=== PATIENT | male | born 1960 | race African-American/Black ===

== ENCOUNTER 2020-07-18 18:57 | Inpatient (IN) | payer OTHER ==
[~2020-07-18] VITALS: Ht 182.9 cm; Wt 72.6 kg
[2020-07-18 19:00] VITALS: BP 137/84
[2020-07-18] MEDS ORDERED: METFORMIN HCL500 MG PO (19:39)
[2020-07-18] MEDS ORDERED: LISINOPRIL10 MG PO (21:12)
[2020-07-18] MEDS ORDERED: GLIPIZIDE 10 MG10 MG PO (21:12)
[2020-07-18] MEDS ORDERED: IBUPROFEN200 M1 PO (21:13)
[2020-07-18 21:19] LABS: ABSOLUTE NEUTROPHILS 7.3 thou/uL (1.4-8.2); BASOPHILS 0.5 % (0.0-2.0); EOSINOPHILS 1.6 % (0.0-3.0); HEMATOCRIT 41.1 % (42.0-52.0); HEMOGLOBIN 13.5 gm/dL (14.0-18.0); LYMPHOCYTES 25.8 % (24.0-44.0); MCH 27.9 pg (26.0-34.0); MCHC 32.9 g/dL (28.0-37.0); MCV 85.1 fL (80.0-100.0); MONOCYTES 7.8 % (1.0-8.0); PLATELET COUNT 176 thou/uL (150-400); POLYS 64.3 % (36.0-66.0); RBC 4.83 mil/uL (4.50-6.00); RDW 13.4 % (10.5-14.5); WBC 11.3 thou/uL (4.0-11.0)
[2020-07-18 21:23] LABS: CALCIUM 9.2 mg/dL (8.5-10.1); CREATININE 0.8 mg/dL (0.7-1.3); POTASSIUM 3.7 mmol/L (3.5-5.1)
[2020-07-19 05:42] LABS: HEMATOCRIT 39.7 % (42.0-52.0); HEMOGLOBIN 12.8 gm/dL (14.0-18.0); MCH 28.3 pg (26.0-34.0); MCHC 32.1 g/dL (28.0-37.0); RBC 4.52 mil/uL (4.50-6.00); RDW 13.4 % (10.5-14.5); WBC 9.5 thou/uL (4.0-11.0)
[2020-07-19 06:34] VITALS: BP 140/82
[2020-07-19 07:45] VITALS: BP 147/89
[2020-07-19 09:41] VITALS: BP 147/89
--- NOTE | 2020-07-19 12:49 | NUR ---
PT WAS SEEN TODAY BY [employer] INTERN// WELL RN. PT ARRIVED TO THE UNIT THIS MORNING VIA ED ESCORT, PT WAS AMBULATORY UPON ARRIVAL ALL BELONGINGS WITH THE PT. UPON ARRIVAL PT WAS RUNNING NORMAL SALINE AND HAD BEEN RECEIVING THE FLUID PER ORDER. PT'S PRIMARY CONCERN UPON ARRIVAL IS GETTING SOME FOOD, RN EXPLAINED THAT DUE TO THE LIKELIHOOD THAT HE MAY NEED SURGICAL INTERVENTION AND IN THE CASE WHICH HE DOES HE MAY NOT BE ABLE TO IF FOOD IS CONSUMEDL; THEREFORE HE IS ON NPO STATUS. PT VERBALIZED UNDERSTANDING. PT WAS EXPLAINED THE PROCESSES THAT WILL BE UNDERTOOK TODAY SUCH BLOOD TESTING/DIAGNOSTIC TESTINGS/ WELL CAREPLAN FOR THE DAY. PT VERBALIZED AND ALL ORDERS WERE FOLLOWED PROMPTLY. AT 1230 WHEN RN RETURNED TO UNIT, IT WAS TOLD THAT PT IS TRYING TO LEAVE. WHEN RN WENT IN THE ROOM PT STUCK HIS ARM OUT AND STATED THAT HE WAS GOING TO LEAVE, WHEN RN EXPLAINED THAT HE SHOULD STAY PT VERBALIZED NO AND ATTEMPTED TO REMOVE THE IV HIMSELF. RN GOT THE AMA PAPERS AND WAS SIGNED. PT WAS ESCORTED BY RN OUT THE ED, AND PT STATED THAT HE GRABBED ALL OF HIS OWN BELONGINGS. ON THE WAY OUT PT VERBALIZED THAT IT WAS NOT THE STAFF ISSUE, IT WAS THE TIME. HE DID NOT EXPECT THAT HE WILL BE STAYING IN THE HOSPTIAL FOR SO LONG AND EVERYONE WAS TAKING SO LONG TO RESPOND TO WHAT IS GOING ON TO HIM. NOTIFIED VIA M_SOLUTION AND WAS PAGED
--- NOTE | 2020-07-20 07:01 | HC ---
[facility] [place] [address] CONSULTATION Name: MELODY DOMINGUEZ Room #: 442-P [facility] IN M.R.#: [id number] Admission: 07/18/20 Attend Phys: Jame Casey MD Discharge: 07/19/20 Date of : 64 Report #: [id number] THIS REPORT FOR: cc: FAM - No family physician/PCP FAM - No family physician/PCP Alexander Rocha MD ~ REASON FOR CONSULTATION: Bilateral cervical adenopathy and history of testicular cancer. HISTORY OF PRESENT ILLNESS: The patient is a 59-year-old male who was treated for testicular cancer in 1987 at [facility] [place], was disease free. 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 He has about a 6-month history of a 60-pound weight loss, also has about a 3 to 7-day history of neck pain and masses in his neck. When he came to the hospital, he was noted to have on these lymph nodes and a CT scan of the neck described extensive lymphadenopathy, predominantly along the jugulodigastric lymph node change, posterior triangle lymph nodes, supraclavicular and upper mediastinum. Necrotic 2.5 cm posterior right jugulodigastric lymph node near the right sternocleidomastoid muscles noted. No definite primary mass within the neck. No evidence of airway mass. Differential diagnosis includes metastatic disease versus lymphoma. Note that there are plans for CT chest, abdomen and pelvis. CBC was fairly unremarkable, though his hemoglobin slightly low at 12.8, platelet count is 149, also, slight low. White count 9.5. BMP was unremarkable. Calcium was 9.2. PAST MEDICAL HISTORY: Notable for the testicular cancer treated in 1987. Also, history of diabetes, history of hypertension, also history of tobacco misuse half pack per day for the last 15 years. MEDICATIONS: At this time in the hospital currently include metformin 500 b.i.d., Zosyn 3.375 IV q. 8 hours, sliding scale insulin, glipizide 5, lisinopril 10, IV fluids. PHYSICAL EXAMINATION: GENERAL: The patient appears his stated age. VITAL SIGNS: Height is 6 feet, 182.9 cm, weight 160 pounds or 72.58 kilograms. MOOD: Pleasant, alert, conversant. NEUROLOGIC: Speech and thought pattern are normal, does have enlarged lymph nodes in both necks and also definitely right supraclavicular, none in the axilla. LUNGS: Clear. The rest with symmetric without stridor, rhonchi or wheezes. HEART: Regular rate. ABDOMEN: Without definite organomegaly. EXTREMITIES: Without clubbing, cyanosis or edema. SKIN: Intact. Recent blood pressure 147/89, O2 sat 99, respirations 18, pulse 85, [place] [address] CONSULTATION Name: MELODY DOMINGUEZ Room #: 442-P [facility] M.R.#: [id number] Admission: 07/18/20 Attend Phys: Jame Casey MD Discharge: 07/19/20 Date of : 64 Report #: [id number] ASSESSMENT AND PLAN: 1. Bilateral neck and supraclavicular, mediastinal adenopathy. Await CT chest, abdomen and pelvis and also ENT evaluation, most likely we would consider either core needle biopsy or surgical removal to ascertain whether this is a thymic cancer either lymphoma or other primary or less likely infection or less likely new testicular primary. We will also check alpha fetoprotein, beta hCG. 2. History of testicular cancer from 33 years ago, unlikely recurrent. 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 3. Hypertension, lisinopril and meds per others. 4. Diabetes, metformin and insulin sliding scale per others. We will follow with you. <ELECTRONICALLY SIGNED> By: Alexander Rocha MD 07/20/20 0701 [id number] Alexander Rocha MD /nt
== END 2020-07-19 12:37 | disposition left against medical advice (07) | DRG 816 ==
LOC: ER 18:57 → EROBS 22:58 → 4S 22:58
PROVIDERS: Nurse Practitioner; Nurse Practitioner Family; ADMIT Internal Medicine; ATTEND Internal Medicine
DX: R59.0 Localized enlarged lymph nodes (principal); E11.9 Type 2 diabetes mellitus without complications; I10 Essential (primary) hypertension; F17.210 Nicotine dependence, cigarettes, uncomplicated; Z71.6 Tobacco abuse counseling; Z85.47 Personal history of malignant neoplasm of testis; Z53.29 Procedure and treatment not carried out because of patient's decision for other reasons